=== PATIENT | female | born 1965 | race Caucasian/White ===

== ENCOUNTER → 2016-10-06 | Outpatient (CLI) | payer BC ==
[2016-10-06 11:09] LABS: ADD SCAN DIFF NO
[2016-10-06 11:16] LABS: ADD UMIC NO; URINE BILIRUBIN (Dip) NEGATIVE (NEGATIVE); URINE BLOOD (Dip) NEGATIVE (NEGATIVE); URINE COLOR LT. YELLOW (YELLOW); URINE GLUCOSE (Dip) NEGATIVE (NEGATIVE); URINE KETONES (Dip) NEGATIVE (NEGATIVE); URINE LEUKOCYTE ESTERASE (Dip) NEGATIVE (NEGATIVE); URINE NITRITE (Dip) NEGATIVE (NEGATIVE); URINE TOTAL PROTEIN (Dip) NEGATIVE (NEGATIVE); URINE UROBILINOGEN (Dip) 0.2 E.U./dL (0.1-1.0)
[2016-10-06 11:21] LABS: BASOPHIL # 0.1 10^3/ul (0.0-0.1); BASOPHILS % 0.9 % (0.0-2.0); EOSINOPHILS # 0.1 10^3/ul (0.0-0.5); EOSINOPHILS % 1.3 % (0.0-7.0); HEMATOCRIT 36.4 % (37.0-47.0); LYMPHOCYTES # 2.1 10^3/ul (0.8-2.9); LYMPHOCYTES % 39.1 % (15.0-51.0); MEAN CORPUSCULAR HEMOGLOBIN 24.8 pg (29.0-33.0); MEAN CORPUSCULAR HGB CONC 30.2 g/dl (32.0-37.0); MEAN CORPUSCULAR VOLUME 82.2 fl (82.0-101.0); MEAN PLATELET VOLUME 10.6 fl (7.4-10.4); MONOCYTE # 0.4 10^3/ul (0.3-0.9); MONOCYTES % 7.7 % (0.0-11.0); NEUTROPHIL # 2.8 10^3/ul (1.6-7.5); PLATELET COUNT 280 10^3/UL (140-415); RED BLOOD COUNT 4.43 10^6/ul (4.20-5.40); RED CELL DISTRIBUTION WIDTH 14.9 % (11.5-14.5); WHITE BLOOD COUNT 5.5 10^3/ul (4.8-10.8)
[2016-10-06 11:25] LABS: ALBUMIN 4.1 g/dl (3.3-4.9)
[2016-10-06 11:26] LABS: POTASSIUM 4.3 mmol/L (3.5-5.1)
[2016-10-06 11:27] LABS: IRON 34 ug/dl (35-150)
[2016-10-06 11:28] LABS: ALBUMIN/GLOBULIN RATIO 1.28; BILIRUBIN,INDIRECT 0.2 mg/dl (0-1.1); BILIRUBIN,TOTAL 0.2 mg/dl (0.2-1.3); CALCIUM 9.1 mg/dl (8.4-10.2); CREATININE 0.66 mg/dl (0.44-1.00); TOTAL PROTEIN 7.3 g/dl (6.1-8.1)
[2016-10-06 11:36] LABS: TOTAL IRON BINDING CAPACITY 394 ug/dl (241-421)
[2016-10-06 11:58] LABS: THYROID STIMULATING HORMONE 1.27 MIU/L (0.465-4.680)
[2016-10-06 12:33] LABS: FOLATE 9.6 ng/ml (2.8-20.0)
== END | disposition home or self-care (01) ==
LOC: EEVIPCON 10:15 → LAB 10:15
PROVIDERS: ATTEND Legal Medicine
DX: Z00.00 Encounter for general adult medical examination without abnormal findings (principal)
CPT/HCPCS: 80053; 80061; 81003; 82306; 82607; 82746; 83036; 83540; 84443; 85025; 85651

== ENCOUNTER 2017-06-14 17:54 | Emergency (ER) | payer BC ==
[~2017-06-14] VITALS: Ht 157.5 cm; Wt 50.0 kg
[2017-06-14 18:02] LABS: URINE BLOOD (Dip) POC Negative (NEGATIVE)
[2017-06-14 18:05] VITALS: Ht 157.5 cm; Wt 50.0 kg
[2017-06-14] MEDS ORDERED: KETOROLAC 15 MG INJ IM STA (18:10)
--- NOTE | 2017-06-14 18:15 | ERD ---
ER Documentation Chief Complaint Chief Complaint bilateral lower back pain / last 3 days HPI 52-year-old female with no significant previous medical history presents to the ED complaining of sharp and crampy, nonradiating, diffuse back pain that has been worsening over the last 3 days. No radicular symptoms. Denies recent trauma or lifting injury. No abdominal pain, nausea, vomiting, diarrhea or constipation. Denies dysuria, polyuria, hematuria or flank pain. Pain is exacerbated by movement and partially relieved by immobility. No skin rash. No fevers or chills. ROS All systems reviewed and are negative except as per history of present illness. Allergies Allergies: Coded Allergies: No Known Allergy (Unverified , 06/14/17) PMhx/Soc Reviewed in chart. As per HPI. Medical and Surgical Hx: pt denies Medical Hx History of Surgery: Yes (partial hysterectomy, gastric bipass) Hx Alcohol Use: No Hx Substance Use: No Hx Tobacco Use: No Smoking Status: Never smoker FmHx Not relevant to presenting complaint. Physical Exam Vitals Vital Signs Date Time Temp Pulse Resp B/P Pulse Ox O2 Delivery O2 Flow Rate FiO2 06/14/17 18:05 98.1 91 16 108/79 100 Physical Exam Const: Alert, mild distress due to pain. Head: Atraumatic Eyes: Normal Conjunctiva ENT: Normal External Ears, Nose and Mouth. Neck: Full range of motion. Nontender. Resp: Clear to auscultation bilaterally Cardio: Regular rate and rhythm, no murmurs Abd: Soft, non tender, non distended. Normal bowel sounds Skin: No petechiae or rashes Back: Mild, diffuse, lumbar tenderness but no paraspinal muscle spasm. No midline bony tenderness, step-off or deformity. No tenderness to percussion. No CVA tenderness Ext: No cyanosis, or edema Neur: Awake and alert. No focal deficit. Motor and sensory equal bilaterally. Normal gait. Psych: Normal Mood and Affect Results 24 hrs Laboratory Tests Test 06/14/17 18:00 06/14/17 18:01 Urine Color YELLOW Urine Clarity CLEAR Urine pH 5.0 Urine Specific [place] 1.028 Urine Ketones TRACEmg/dL Urine Nitrite NEGATIVEmg/dL Urine Bilirubin NEGATIVEmg/dL Urine Urobilinogen 1+mg/dL Urine Leukocyte Esterase NEGATIVELeu/ul Urine Hemoglobin NEGATIVEmg/dL Urine Glucose NEGATIVEmg/dL Urine Total Protein NEGATIVEmg/dl Bedside Urine pH (LAB) 5.5 Bedside Urine Protein (LAB) Negative Bedside Urine Glucose (UA) Negative Bedside Urine Ketones (LAB) Trace Bedside Urine Blood Negative Bedside Urine Nitrite (LAB) Negative Bedside Urine Leukocyte Esterase (L Negative Current Medications Medications (Trade) Dose Ordered Sig/Shobha Route PRN Reason Start Time Stop Time Status Last Admin Dose Admin Ketorolac Tromethamine (Toradol) 15 mg ONCE STAT IM 06/14/17 18:10 06/14/17 18:11 DC 06/14/17 18:19 Procedures/MDM DOCUMENTS REVIEWED: ED nurse, prior records REEXAMINATION/REEVALUATION: Time:18:30. Pain decreased [employer]ISION [employer]KIN-year-old female with no significant previous medical history presents to the ED complaining of sharp and crampy, nonradiating , diffuse back pain that has been worsening over the last 3 days. Patient presents with atraumatic back pain. Although infection, malignancy, GI, and vascular causes have been considered, the patient's clinical presentation is most consistent with a musculoskeletal cause. There is neither evidence of acute neurologic damage, nor loss of function and thus, advanced imaging studies have been deferred. Pain decreased with ketorolac 50 mg IM. Patient will be treated conservatively with appropriate pain control and discharged for outpatient follow-up with precautionary discharge instructions. Counseled patient regarding diagnostic workup, diagnosis and need for followup. Understands to return to ED if symptoms recur, worsen or any other concerns. Departure Diagnosis: Primary Impression: Acute lumbar back pain Back pain laterality: bilateral Sciatica presence: without sciatica Qualified Code: M54.5 - Acute bilateral low back pain without sciatica Condition: Stable ANAHY MASTRES MD Jun 14, 2017 18:15
[2017-06-14 18:33] LABS: ADD UMIC NO; UR ASCORBIC ACID NEGATIVE (NEGATIVE); UR BILIRUBIN (Dip) NEGATIVE (NEGATIVE); UR BLOOD (Dip) NEGATIVE (NEGATIVE); UR CLARITY CLEAR (CLEAR); UR COLOR YELLOW (YELLOW); UR GLUCOSE (Dip) NEGATIVE (NEGATIVE); UR KETONES (Dip) TRACE mg/dL (NEGATIVE); UR LEUKOCYTE ESTERASE (Dip) NEGATIVE Leu/ul (NEGATIVE); UR NITRITE (Dip) NEGATIVE (NEGATIVE); UR SPECIFIC GRAVITY (Dip) 1.028 (1.003-1.030); UR TOTAL PROTEIN (Dip) NEGATIVE (NEGATIVE); UR UROBILINOGEN (Dip) 1+ mg/dL (NEGATIVE)
== END 2017-06-14 18:56 | disposition home or self-care (01) ==
LOC: E/R 17:54
DX: M54.5 Low back pain (principal)
CPT/HCPCS: 81003; 96372; 99284; J1885

== ENCOUNTER 2017-09-02 21:31 | Emergency (ER) | END 2017-09-02 23:05 | disposition home or self-care (01) ==